=== PATIENT | female | born 1975 | race Caucasian/White ===

== ENCOUNTER 2016-08-30 18:05 | Emergency (ER) | payer OTHER ==
[~2016-08-30] VITALS: Ht 170.2 cm; Wt 124.7 kg
[~2016-08-30 18:05] MED LIST: BUDEPRION XL150 MG PO; ESCITALOPRAM10 M1 PO; LEVOTHYROXIN0.112 M1 PO; LEVOXYL0.112 MG PO; LORTAB 5/500 501 TAB PO; NAPROXEN SODIU500 MG PO; PHENERGAN 25MG.25 M1 PO; VICODIN 5/500 T1 TAB PO
--- NOTE | 2016-08-30 18:26 | Urgent Treatment Center Report ---
History of Present Issue Date/Time Seen by Provider 08/30/16 7395 Visit Reason Pt arrived:Walked Presenting Problem:PT STATES HEADACHE, CHILLS, BODY ACHES, SORE THROAT, NAVEEN EAR PAIN, NECK PAIN, AND DIARRHEA THAT BEGAN TODAY. STATES TAKING TYLENOL AT 1700. Location if Accident: Onset of symptoms date/time:08/30/16/ or onset unknown for:MEDICAL HX UNKNOWN Have you (or family members/close friends) recently traveled outside the [place]? N If Yes, where/when: Have you had exposure to infectious disease within the past month? TB? Other? Specify: c/o sudden onset fever 101, bodyaches, chills, headache, sore throat, ear pressure starting today. Tylenol helping w/ fever slightly. Last dose 1700. Can' t take ibuprofen. 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 Denies SOA, Wheezing. Pain all over, achy, worse in joints, Source patient Exam Limitations no limitations ALLERGIES Coded Allergies: acetaminophen (From PERCOCET) (Intermediate, I-HIVES 09/17/15) oxycodone (From PERCOCET) (Intermediate, I-HIVES 09/17/15) Uncoded Allergies: STEROIDS (09/17/15) Home Medications Reported Medications Levothyroxine Sodium (Levoxyl) 0.112 MG PO DAILY #30 Escitalopram Oxalate 10 MG PO QHS #30 Bupropion Hcl (Bupropion XL) 150 MG PO DAILY #30 History Medical History General CAD? No Angina: No [place]: No Hypertension? Yes Hyperlipidemia? No CHF? No DVT? No PE? No COPD? No Asthma? No Anemia? No GERD? Yes Gastric ulcers? No GI Bleed? No Hernia? No Thyroid Problems? Yes Hypothyroidism? Yes CVA? No Seizures? No Diabetes? No Renal Insuffiency? No UTI? No Stones? No GB Disease: Yes Nephritic Syndrome? No Asplenia? No Hepatitis? No Sickle Cell Disease? No Arthritis? No Migraines? Yes Cataracts? No Glaucoma? No MRSA? No HIV? No TB? No Anxiety? No Depression? Yes Cancer? No More? Yes Additional hx: ITP Immunization HX DT/Tetanus 1-4 YRS Flu REFUSES Pneumonia REFUSES Surgical Hx Previous Surgery?Y T AND A EAR TUBES HYSTERECTOMY THYROID [employer] Hx LMP N/A Family History Family HX Diabetes Yes CAD No Hypertension Yes Hyperlipidemia No Cancer Yes TB No Social History Smoking Hx Smoker: Never Smoker Tobacco: No Alcohol Alcohol: No Review of Systems All Other Systems Reviewed and Negative Constitutional see HPI, malaise Eyes denies no symptoms reported ENT ear pain (pressure, intermittent), nose discharge, throat pain. denies: ear discharge, nose congestion, throat swelling. Respiratory see HPI Cardiovascular denies no symptoms reported Gastrointestinal denies abdominal pain, denies constipation, diarrhea (once), denies nausea, denies vomiting Genitourinary denies: dysuria. Musculoskeletal see HPI Skin denies no symptoms reported Psychiatric/Neurological headache, denies other (dizziness) Physical Exam Vital Signs Vital Signs Date Time Temp Pulse Resp B/P Pulse O2 O2 Flow FiO2 Ox Delivery Rate 08/30 1815 97.7 74 20 154/94 100 General Appearance no apparent distress, obviously doesn't feel well. Immediately lays down on exam table where she remains for entire visit Eye Exam - bilateral eye normal exam Ear, Nose, Throat normal ENT inspection Neck non-tender, supple Respiratory Status No: respiratory distress (no witnessed cough). Lung Sounds anterior: lungs clear. posterior: lungs clear. bilateral: lungs clear. Cardiovascular regular rate/rhythm, no murmur Gastrointestinal normal bowel sounds, non tender, soft Neurologic alert Skin warm/dry Lymphatic no adenopathy (cervical) Medical Decision Making LABS/Meds/Orders Pt receiving controlled substance in ED? No Results/Orders Laboratory Tests 08/30/161819: Influenza Type A Ag NOT DETECTED, Influenza Type B Ag NOT DETECTED, Group A Strep Screen NOT DETECTED Orders Procedure Date/time Status [facility] STREP SCREEN 08/30 1819 Complete [facility] FLU A,B 08/30 1819 Complete Departure Departure Time of Disposition 1843 Disposition [place] Home or Self Care(routine) Clinical Impression Primary Impression: Influenza-like illness Secondary Impressions: Exposure to the flu Condition STABLE Referrals DEMETRICE MAGAÑA (Family) Immediately for new or worsening symptoms or if not improving as expected and discussed for flu Patient Instructions DI for Influenza -- Adult Additional Instructions Increase fluids Rest Tylenol only since you are not able to take ibuprofen Start tamiflu immediately. Contagious until no fever, aches, chills x 24 hours without medication Discharge Counseling Counseled pt/family regarding diagnosis, test results, medications/RX, home care, follow up needs Prescriptions Current Visit Scripts Oseltamivir Phosphate (Tamiflu 75MG Capsule) 75 MG PO BID #10 CAP at [id number]
--- NOTE | 2016-08-30 18:26 | Urgent Treatment Center Report ---
History of Present Issue Date/Time Seen by Provider 08/30/16 7505 Visit Reason Pt arrived:Walked Presenting Problem:PT STATES HEADACHE, CHILLS, BODY ACHES, SORE THROAT, NAVEEN EAR PAIN, NECK PAIN, AND DIARRHEA THAT BEGAN TODAY. STATES TAKING TYLENOL AT 1700. Location if Accident: Onset of symptoms date/time:08/30/16/ or onset unknown for:MEDICAL HX UNKNOWN Have you (or family members/close friends) recently traveled outside the [place]? N If Yes, where/when: Have you had exposure to infectious disease within the past month? TB? Other? Specify: c/o sudden onset fever 101, bodyaches, chills, headache, sore throat, ear pressure starting today. Tylenol helping w/ fever slightly. Last dose 1700. Can' t take ibuprofen. 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 Denies SOA, Wheezing. Pain all over, achy, worse in joints, Source patient Exam Limitations no limitations ALLERGIES Coded Allergies: acetaminophen (From PERCOCET) (Intermediate, I-HIVES 09/17/15) oxycodone (From PERCOCET) (Intermediate, I-HIVES 09/17/15) Uncoded Allergies: STEROIDS (09/17/15) Home Medications Reported Medications Levothyroxine Sodium (Levoxyl) 0.112 MG PO DAILY #30 Escitalopram Oxalate 10 MG PO QHS #30 Bupropion Hcl (Bupropion XL) 150 MG PO DAILY #30 History Medical History General CAD? No Angina: No [place]: No Hypertension? Yes Hyperlipidemia? No CHF? No DVT? No PE? No COPD? No Asthma? No Anemia? No GERD? Yes Gastric ulcers? No GI Bleed? No Hernia? No Thyroid Problems? Yes Hypothyroidism? Yes CVA? No Seizures? No Diabetes? No Renal Insuffiency? No UTI? No Stones? No GB Disease: Yes Nephritic Syndrome? No Asplenia? No Hepatitis? No Sickle Cell Disease? No Arthritis? No Migraines? Yes Cataracts? No Glaucoma? No MRSA? No HIV? No TB? No Anxiety? No Depression? Yes Cancer? No More? Yes Additional hx: ITP Immunization HX DT/Tetanus 1-4 YRS Flu REFUSES Pneumonia REFUSES Surgical Hx Previous Surgery?Y T AND A EAR TUBES HYSTERECTOMY THYROID [employer]FF M[employer]ER Hx LMP N/A Family History Family HX Diabetes Yes CAD No Hypertension Yes Hyperlipidemia No Cancer Yes TB No Social History Smoking Hx Smoker: Never Smoker Tobacco: No Alcohol Alcohol: No Review of Systems All Other Systems Reviewed and Negative Constitutional see HPI, malaise Eyes denies no symptoms reported ENT ear pain (pressure, intermittent), nose discharge, throat pain. denies: ear discharge, nose congestion, throat swelling. Respiratory see HPI Cardiovascular denies no symptoms reported Gastrointestinal denies abdominal pain, denies constipation, diarrhea (once), denies nausea, denies vomiting Genitourinary denies: dysuria. Musculoskeletal see HPI Skin denies no symptoms reported Psychiatric/Neurological headache, denies other (dizziness) Physical Exam Vital Signs Vital Signs Date Time Temp Pulse Resp B/P Pulse O2 O2 Flow FiO2 Ox Delivery Rate 08/30 1815 97.7 74 20 154/94 100 General Appearance no apparent distress, obviously doesn't feel well. Immediately lays down on exam table where she remains for entire visit Eye Exam - bilateral eye normal exam Ear, Nose, Throat normal ENT inspection Neck non-tender, supple Respiratory Status No: respiratory distress (no witnessed cough). Lung Sounds anterior: lungs clear. posterior: lungs clear. bilateral: lungs clear. Cardiovascular regular rate/rhythm, no murmur Gastrointestinal normal bowel sounds, non tender, soft Neurologic alert Skin warm/dry Lymphatic no adenopathy (cervical) Medical Decision Making LABS/Meds/Orders Pt receiving controlled substance in ED? No Results/Orders Laboratory Tests 08/30/161819: Influenza Type A Ag NOT DETECTED, Influenza Type B Ag NOT DETECTED, Group A Strep Screen NOT DETECTED Orders Procedure Date/time Status [facility] STREP SCREEN 08/30 1819 Complete [facility] FLU A,B 08/30 1819 Complete Departure Departure Time of Disposition 1843 Disposition [place] Home or Self Care(routine) Clinical Impression Primary Impression: Influenza-like illness Secondary Impressions: Exposure to the flu Condition STABLE Referrals DEMETRICE MAGAÑA (Family) Immediately for new or worsening symptoms or if not improving as expected and discussed for flu Patient Instructions DI for Influenza -- Adult Additional Instructions Increase fluids Rest Tylenol only since you are not able to take ibuprofen Start tamiflu immediately. Contagious until no fever, aches, chills x 24 hours without medication Discharge Counseling Counseled pt/family regarding diagnosis, test results, medications/RX, home care, follow up needs Prescriptions Current Visit Scripts Oseltamivir Phosphate (Tamiflu 75MG Capsule) 75 MG PO BID #10 CAP at [id number]
[2016-08-30 18:40] LABS: UTC STREP SCREEN NOT DETECTED (NOTDETECTED)
[2016-08-30] MEDS ORDERED: TAMIFLU 75MG CA75 MG PO (18:49)
[2016-08-30 18:52] VITALS: BP 154/94
== END 2016-08-30 18:52 | disposition home or self-care (01) ==
LOC: UTC 18:05
PROVIDERS: Nurse Practitioner Family
DX: J10.1 Influenza due to other identified influenza virus with other respiratory manifestations (principal)